=== PATIENT | female | born 1995 | race Caucasian/White ===

== ENCOUNTER → 2017-02-17 | Outpatient (CLI) | payer OTHER ==
--- NOTE | 2017-02-17 14:55 | REP ---
Lumbar spine series: Five views. History: Chronic low back pain. No comparison imaging. Findings: Lumbar vertebral body heights are preserved. Alignment is normal. Disc spaces are maintained. Pedicles and posterior elements are intact. There is no evidence of spondylolysis or spondylolisthesis. Sacrum and SI joints are unremarkable. Psoas margins are symmetric. Flank stripes are intact. The top of a vaginal tampon is noted on the AP radiograph in the pelvis. Impression: Negative lumbar spine radiographs. Signed by Yaron Cole MD 02/17/2017 04:25 P
== END ==
LOC: M WUC 14:24
PROVIDERS: ATTEND Physician Assistant
DX: M54.5 Low back pain (principal)

== ENCOUNTER → 2023-09-07 | Outpatient (CLI) | payer OTHER ==
[2023-09-07 11:15] LABS: BASO % 0.4 % (0.0-1.0); EOS # 0.1 10^3/uL (0.0-0.5); EOS % 1.9 % (0.0-3.0); HEMATOCRIT 40.9 % (36.0-47.0); HEMOGLOBIN 13.1 g/dl (12.0-15.5); LYMPH # 1.7 10^3/uL (1.5-5.0); MEAN CORPUSCULAR HEMOGLOBIN 30.1 pg (27.0-33.0); MONO # 0.3 10^3/uL (0.0-0.8); MONO % 6.4 % (2.0-8.0); NEUTROPHILS # 3.2 10^3/uL (1.5-8.5); NEUTROPHILS % 59.1 % (36.0-66.0); PLATELET COUNT, AUTOMATED 341 10^3/uL (150-450); RED BLOOD COUNT 4.35 10^6/uL (4.00-5.40); WHITE BLOOD COUNT 5.4 10^3/uL (4.0-10.0)
[2023-09-07 11:24] LABS: C REACTIVE PROTEIN QUANTITATIV < 0.40 MG/DL (<1.0)
[2023-09-07 11:24] LABS: ERYTHROCYTE SEDIMENTATION RATE 13 mm/hr (0-20)
[2023-09-07 11:25] LABS: ALKALINE PHOSPHATASE 55 U/L (46-116); ALT/SGPT 25 U/L (7.0-40); AST/SGOT 11 U/L (<34); BILIRUBIN,TOTAL 0.3 MG/DL (0.3-1.2); BLOOD UREA NITROGEN 8 MG/DL (9-23); CALCIUM LEVEL 8.6 MG/DL (8.5-10.1); CARBON DIOXIDE LEVEL 28 MMOL/L (20-31); CHLORIDE LEVEL 111 MMOL/L (98-107); GLOMERULAR FILTRATION RATE > 60.0 (>60); GLUCOSE, FASTING 87 MG/DL (60-100); POTASSIUM SERUM 4.6 MMOL/L (3.5-5.1); SODIUM LEVEL 143 MMOL/L (136-145)
[2023-09-08 14:11] LABS: SSA SJOGRENS A <0.2 AI (0.0-0.9); SSB SJOGRENS B <0.2 AI (0.0-0.9)
== END ==
LOC: M RAD 09:44
PROVIDERS: ATTEND Internal Medicine Rheumatology
DX: M25.50 Pain in unspecified joint (principal); R20.0 Anesthesia of skin; R53.83 Other fatigue

== ENCOUNTER → 2023-12-28 | Outpatient (CLI) | payer MEDICAID, OTHER | LOC: M PLAIMG 06:36 | PROVIDERS: ATTEND Internal Medicine Rheumatology | DX: M67.431 Ganglion, right wrist (principal); R20.0 Anesthesia of skin; R53.83 Other fatigue ==

== ENCOUNTER → 2024-01-04 | Outpatient (CLI) | payer OTHER | LOC: M PLAIMG 06:44 | PROVIDERS: ATTEND Internal Medicine Rheumatology | DX: M25.532 Pain in left wrist (principal) ==

== ENCOUNTER → 2024-08-07 | Outpatient (CLI) | payer OTHER | LOC: M LAB 11:39 | PROVIDERS: ATTEND Internal Medicine Rheumatology | DX: M25.50 Pain in unspecified joint (principal) ==